=== PATIENT | male | born 1990 | race Caucasian/White ===

== ENCOUNTER 2018-02-01 06:13 | Emergency (ER) | payer OTHER ==
[~2018-02-01] VITALS: Ht 165.1 cm; Wt 68.0 kg
[2018-02-01] MEDS ORDERED: VENTOLIN HFA 1818 GM INH (06:24)
[2018-02-01] MEDS ORDERED: DOXYCYCLINE 10100 MG PO (06:24)
[2018-02-01] MEDS ORDERED: TESSALON PERLE100 MG PO (07:02)
[2018-02-01 07:16] VITALS: BP 142/68
== END 2018-02-01 07:16 | disposition home or self-care (01) ==
LOC: M.ERS 06:13
DX: J40 Bronchitis, not specified as acute or chronic (principal); J06.9 Acute upper respiratory infection, unspecified